=== PATIENT | male | born 1980 | race Two or more races ===

== ENCOUNTER 2024-01-05 13:55 | Emergency (ER) | payer MEDICAID, OTHER ==
[~2024-01-05] VITALS: Ht 172.7 cm; Wt 87.0 kg
[2024-01-05 13:59] VITALS: O2SAT 98
[2024-01-05] MEDS: KETOROLAC 15MG/ML VIAL IM ONE (14:30)
[2024-01-05] MEDS ORDERED: LIDO700A15 TP (14:47)
[2024-01-05] MEDS ORDERED: NAPR-1176 MT (14:47)
[2024-01-05 15:47] VITALS: BP 136/89; PULSE 77; TEMP 98.1
== END 2024-01-05 15:46 | disposition home or self-care (01) ==
LOC: ER 13:55
DX: S89.92XA Unspecified injury of left lower leg, initial encounter (principal); Y93.89 Activity, other specified; Y92.89 Other specified places as the place of occurrence of the external cause; Y99.8 Other external cause status
CPT/HCPCS: 73560; 99283; J1885; Z7610; L1830

== ENCOUNTER 2024-05-24 11:00 | Emergency (ER) | payer OTHER ==
[~2024-05-24] VITALS: Ht 172.7 cm; Wt 77.1 kg
[~2024-05-24 11:00] MED LIST: LIDO700A15 TP; NAPR-1176 MT
[2024-05-24 11:03] VITALS: O2SAT 98
[2024-05-24 11:35] LABS: EOSINOPHILS % 2.3 % (0.0-5.0); LYMPHOCYTES % 37.1 % (20.0-50.0); MEAN CORPUSCULAR HGB CONC 32.4 g/dL (31.0-37.0); MEAN CORPUSCULAR VOLUME 83.3 fL (80.0-94.0); MEAN PLATELET VOLUME 9.6 fl (7.4-10.4); MONOCYTES % 7.6 % (2.0-8.0); PLATELET 263 x1000/uL (130-400); RED CELL DISTRIBUTION WIDTH 14.9 % (11.6-14.6); WHITE BLOOD COUNT 4.9 x1000/uL (4.5-11.0)
[2024-05-24] MEDS: IBUPROFEN 600MG TABLET PO ONE (11:45)
[2024-05-24 11:52] LABS: CARBON DIOXIDE 27 mEq/L (21-32); CHLORIDE 110 mEq/L (98-107); POTASSIUM 4.3 mEq/L (3.5-5.1); SODIUM 144 mEq/L (136-145)
[2024-05-24 11:53] LABS: CALCIUM 9.6 mg/dL (8.7-10.4)
[2024-05-24 11:58] LABS: CREATININE 1.3 mg/dL (0.6-1.3); GLUCOSE 81 mg/dL (70-105); UREA NITROGEN BLOOD 16 mg/dL (9-23)
[2024-05-24 12:05] LABS: TROPONIN I HIGH SENSITIVITY < 4 ng/L (3.0-53)
[2024-05-24 12:21] LABS: CLARITY URINE CLEAR (CLEAR); COLOR URINE YELLOW (YELLOW); GLUCOSE URINE NEGATIVE (NEGATIVE); KETONES URINE NEGATIVE (NEGATIVE); LEUKOCYTE ESTERASE URINE NEGATIVE (NEGATIVE); NITRITE URINE NEGATIVE (NEGATIVE); OCCULT BLOOD URINE NEGATIVE (NEGATIVE); PH URINE 5.5 (4.5-8.0); PROTEIN URINE NEGATIVE (NEGATIVE); SPECIFIC GRAVITY URINE 1.025 (1.005-1.030); UROBILINOGEN URINE 0.2 E.U./dL (0.2-1.0)
[2024-05-24 12:53] VITALS: BP 118/81; PULSE 63; RESP 16; TEMP 37.00296; O2SAT 98
== END 2024-05-24 13:23 | disposition home or self-care (01) ==
LOC: ER 11:11
DX: R07.89 Other chest pain (principal)
CPT/HCPCS: 36415; 71045; 80048; 81003; 84484; 85025; 93005; 99285